=== PATIENT | male | born 1980 | race Caucasian/White ===

== ENCOUNTER 2020-04-21 09:35 | Outpatient (REF) | payer OTHER, SELFPAY | END 2020-04-21 09:36 | disposition home or self-care (01) | LOC: HO.WFDLDS 09:35 | PROVIDERS: Visit Provider Internal Medicine | DX: Z20.828 Contact with and (suspected) exposure to other viral communicable diseases (principal) | CPT/HCPCS: C9803; U0003 ==

== ENCOUNTER 2020-08-11 09:03 | Outpatient (REF) | payer OTHER, SELFPAY ==
[2020-08-11 10:28] LABS: Estimated Average Glucose 146 mg/dL; Hemoglobin A1c % 6.7 %
[2020-08-11 10:37] LABS: Creatinine Urine 82.38 mg/dL; Microalbum/Creatinine Ratio Ur 9.7 ug/mg cr
[2020-08-11 10:39] LABS: Anion Gap 17 (12-20); Blood Urea Nitrogen 19 mg/dL (9-16); Calcium 9.6 mg/dL (8.4-10.2); Carbon Dioxide 25 mmol/L (22-29); Chloride 102 mmol/L (96-108); Cholesterol 158 mg/dL; Estimated Glomerular Filt Rate > 60; Glucose Fasting 107 mg/dL (60-99); HDL Cholesterol 45 mg/dL; LDL Cholesterol Calculated 76 mg/dl; Potassium 5.4 mmol/L (3.3-5.1); Sodium 139 mmol/L (135-145); Triglycerides 187 mg/dL
== END 2020-08-11 09:04 | disposition home or self-care (01) ==
LOC: HO.10HDL 09:03
PROVIDERS: Visit Provider Nurse Practitioner Gerontology
DX: E11.65 Type 2 diabetes mellitus with hyperglycemia (principal)
CPT/HCPCS: 36415; 80048; 80061; 82043; 83036

== ENCOUNTER → 2020-08-12 08:41 | Outpatient (BNVA) | payer OTHER, SELFPAY | PROVIDERS: PCP Nurse Practitioner Family; Visit Provider Nurse Practitioner Gerontology | DX: E11.65 Type 2 diabetes mellitus with hyperglycemia (principal); I10 Essential (primary) hypertension; E78.5 Hyperlipidemia, unspecified; E87.5 Hyperkalemia; E66.01 Morbid (severe) obesity due to excess calories; Z68.36 Body mass index [BMI] 36.0-36.9, adult; E55.9 Vitamin D deficiency, unspecified | CPT/HCPCS: 82947 ==

== ENCOUNTER → 2021-02-10 08:34 | Outpatient (BNVA) | payer OTHER, SELFPAY | PROVIDERS: PCP Physician Assistant; Visit Provider Nurse Practitioner Gerontology | DX: E11.65 Type 2 diabetes mellitus with hyperglycemia (principal); E78.5 Hyperlipidemia, unspecified; E87.5 Hyperkalemia; E66.01 Morbid (severe) obesity due to excess calories; E55.9 Vitamin D deficiency, unspecified; I10 Essential (primary) hypertension; Z68.36 Body mass index [BMI] 36.0-36.9, adult | CPT/HCPCS: 82947; 83036 ==

== ENCOUNTER 2021-02-10 09:14 | Outpatient (REF) | payer OTHER, SELFPAY ==
[2021-02-10 11:24] LABS: Anion Gap 15 (12-20); Blood Urea Nitrogen 17 mg/dL (9-16); Calcium 10.3 mg/dL (8.4-10.2); Carbon Dioxide 25 mmol/L (22-29); Chloride 103 mmol/L (96-108); Estimated Glomerular Filt Rate > 60; Glucose Random 147 mg/dL (60-115); Potassium 4.9 mmol/L (3.3-5.1); Sodium 138 mmol/L (135-145)
== END 2021-02-10 09:15 | disposition home or self-care (01) ==
LOC: HO.10HDL 09:14
PROVIDERS: Visit Provider Nurse Practitioner Gerontology
DX: E11.65 Type 2 diabetes mellitus with hyperglycemia (principal)
CPT/HCPCS: 36415; 80048

== ENCOUNTER → 2021-08-19 08:10 | Outpatient (BNVA) | payer OTHER, SELFPAY | PROVIDERS: PCP Physician Assistant; Visit Provider Nurse Practitioner Gerontology | DX: E11.65 Type 2 diabetes mellitus with hyperglycemia (principal); E55.9 Vitamin D deficiency, unspecified; E66.01 Morbid (severe) obesity due to excess calories; Z68.36 Body mass index [BMI] 36.0-36.9, adult; I10 Essential (primary) hypertension; Z71.3 Dietary counseling and surveillance | CPT/HCPCS: 82947; 83036 ==

== ENCOUNTER 2022-12-31 09:24 | Outpatient (REF) | payer OTHER, SELFPAY ==
[2022-12-31 10:23] LABS: Hematocrit 48.7 % (42.0-52.0); Hemoglobin 16.3 g/dl (14.0-18.0); Mean Corpuscular HGB Conc 33.5 g/dl (31.0-36.0); Mean Corpuscular Volume 89.5 fL (80.0-98.0); Mean Platelet Volume 9.3 fL (9.4-12.4); Platelet Count 240 X10*3/uL (160-400); Red Blood Count 5.44 X10*6/uL (4.60-5.80); Red Cell Distribution Width 11.7 % (11.0-16.0); White Blood Count 7.8 X10*3/uL (4.8-10.8)
[2022-12-31 10:53] LABS: Creatinine Urine 72.04 mg/dL
[2022-12-31 11:00] LABS: Alanine Aminotransferase 24 U/L (0-40); Albumin Level 4.7 g/dL (3.5-5.0); Alkaline Phosphatase 70 U/L (39-117); Anion Gap 15 (12-20); Aspartate Amino Transferase 20 U/L (5-37); Bilirubin Total 0.6 mg/dL (0.0-1.0); Blood Urea Nitrogen 17 mg/dL (9-16); Calcium 10.2 mg/dL (8.4-10.2); Carbon Dioxide 27 mmol/L (22-29); Chloride 101 mmol/L (96-108); Cholesterol 128 mg/dL; Estimated Glomerular Filt Rate > 60; Glucose Fasting 110 mg/dL (60-99); HDL Cholesterol 38 mg/dL; LDL Cholesterol Calculated 58 mg/dl; Potassium 5.2 mmol/L (3.3-5.1); Sodium 138 mmol/L (135-145); Total Protein 7.8 g/dL (6.5-8.0); Triglycerides 164 mg/dL
[2022-12-31 11:15] LABS: TSH reflex Free T4 1.14 uIU/mL (0.32-4.0)
== END 2022-12-31 09:25 | disposition home or self-care (01) ==
LOC: HO.10HDL 09:24
PROVIDERS: Visit Provider Physician Assistant
DX: I10 Essential (primary) hypertension (principal); E11.65 Type 2 diabetes mellitus with hyperglycemia; E78.5 Hyperlipidemia, unspecified
CPT/HCPCS: 36415; 80053; 80061; 82043; 84443; 85027

== ENCOUNTER 2023-01-03 11:11 | Outpatient (AMB) | payer OTHER, SELFPAY ==
[2023-01-03 11:14] VITALS: BP 110/62; PULSE 90; O2SAT 98; BMI 34.4
--- NOTE | 2023-01-03 11:14 | MHC.PC.OV ---
Vital Signs 01/03/23 11:14 Height 5 ft 8 in Weight 226 lb 6 oz BMI 34.4 BP 110/62 Blood Pressure Location Lt brachial Position Sitting Pulse 90 Pulse Source Pulse Oximeter Pulse Oximetry (%) 98 Oxygen Delivery Method Room Air Intake Visit Reasons: f/u DMII Intake Note: Patient is here to follow up on DMII. Member Of Congress Required: No Accompanied by: Self / Same As Patient Allergies morphine [MORPHINE] Allergy (Unknown, Verified 01/03/23 11:15) ITCHING shellfish derived [SHELLFISH DERIVED] Allergy (Unknown, Verified 01/03/23 11:15) UNKNOWN pioglitazone Adverse Reaction (Intermediate, Verified 01/03/23 11:20) Arthralgias Morphine Allergy (Unknown, Uncoded 01/03/23 11:15) hives shellfish Allergy (Unknown, Uncoded 01/03/23 11:15) stomach upset Medication List - Last Reconciled 01/03/23 by Pj Seth PA-C cholecalciferol (vitamin D3) 50 mcg PO DAILY 30 days dulaglutide (Trulicity) 3 mg (0.5 mL) subcut QWEEK 28 days empagliflozin (Jardiance) 25 mg PO QAM lisinopril 10 mg PO DAILY metformin 1,000 mg PO BID rosuvastatin 40 mg PO DAILY 90 days Tobacco use date assessed: 08/30/22 Dental Screening Dental Screen Date: 01/03/23 Did you have a dental visit in the last 12 months?: No Did you have a dental problem in the last 6 months where you did not have access to dental care?: No Was dental information given to patient?: Patient has dentist HPI f/u DMII HPI Details Patient is a 42- year-old male here today for follow-up visit. ? Patient has a past medical history significant for type 2 diabetes, hyperlipidemia, hypertension and obesity. Type 2 diabetes:? Has lost his follow-up with endocrinology due to his provider leaving the practice. Now has PCP managing his diabetes. ? continues on Trulicity 3mg weekly, Jardiance and metformin.? Recently increased his Trulicity dose to 3 mg weekly ?Today's A1c-7.8 ..? Report blood sugars have been 180- 190s. PLAN: Will increase his Trulicity dose to 4.5 weekly, will consider transitioning to mounjaro if A1c not below 7.0 in 6 months. .. Hypertension:? Blood pressure has been acceptable at home.?Continues on 10 mg of lisinopril with good effect.? Otherwise denies any chest discomforts, palpitations, shortness of breath. .. Obesity:? Patient does understand his BMI is 30 and will work on being more physically active to reduce his weight. Laboratory Tests 08/19/21 08/30/22 12/31/22 08:20 12:37 09:30 RBC 5.44 Hgb 16.3 Potassium Creatinine Fasting Glucose Hgb A1c (Clinic) 7.4 H 7.3 H Cholesterol LDL Cholesterol, C alc TSH Urine Microalbumin 12/31/22 12/31/22 09:30 09:30 RBC Hgb Potassium 5.2 H Creatinine 0.82 Fasting Glucose 110 H Hgb A1c (Clinic) Cholesterol 128 LDL Cholesterol, C alc 58 TSH 1.14 Urine Microalbumin 13.0 [facility] Medical History (Updated 01/03/23 @ 11:21 by Pj Seth PA-C) COVID-19 Hyperlipidemia LDL goal <100 Hypovitaminosis D Type 2 diabetes mellitus with hyperglycemia, without long-term current use of insulin Surgical History No history of previous surgery Family History Maternal Uncle Diabetes Maternal Grandfather Diabetes Social History Household Members: Spouse Housing: House Alcohol intake: current Alcohol intake frequency: holidays/special occasions only Patient Tobacco Use Status: Never used Tobacco e-Cigarette/Vaping Use: Never Used Second Hand Smoke Exposure: Yes service: No Current occupational status: employed Current occupation: [employer] Cognitive needs: No Hearing needs: No Vision needs: Yes (glasses) Questionnaire Thrive Questionnaire Date Thrive assessed: 08/30/22 MONA-7 AMB Questionnaire MONA-7 Date MONA - 7 assessed: 08/30/22 Source: Developed by Drs. Mariano Knott, Denise Cobb, Matt Chen and colleagues, with an educational kendra from [employer] Review of Systems Const Denies headache(s) Eyes Denies loss of vision ENT Denies vertigo, Denies dizziness, Denies headache(s) and Denies sore throat Card Denies chest pain, Denies leg edema and Denies lightheadedness Resp Denies cough, Denies hemoptysis and Denies wheezing GI Denies abdominal pain, Denies melena, Denies constipation, Denies diarrhea and Denies vomiting Denies dysuria, Denies urinary frequency and Denies urinary urgency Musc Denies arthralgias, Denies joint swelling, Denies numbness and Denies tingling Neuro Denies Abnormal speech present, Denies behavioral changes, Denies vertigo, Denies dizziness, Denies headache(s), Denies loss of vision, Denies memory loss, Denies numbness and Denies tingling Psych Denies anxiety, Denies behavioral changes, Denies depression, Denies memory loss and Denies panic attacks Jesse/Lymph Denies easy bleeding and Denies easy bruising Aller/Immun Denies wheezing Physical exam (Primary Care) Vital Signs: Last Vital Signs Pulse 90 01/03/23 11:14 BP 110/62 01/03/23 11:14 Pulse Ox 98 01/03/23 11:14 Oxygen Delivery Method Room Air 01/03/23 11:14 BMI result Body Mass Index 34.4 BMI Assessment/Plan discussion: High Tobacco/Smoking Status: Tobacco use Status Tobacco use date assessed 08/30/22 01/03/23 11:18 Patient Tobacco Use Status Never used Tobacco 01/03/23 11:18 e-Cigarette/Vaping Use Never Used 01/03/23 11:18 Thrive Assessment: Date of Thrive Assessment Date Thrive assessed 08/30/22 01/03/23 11:18 Const Other: Obese General: healthy appearing, no acute distress, alert and awake Nutritional Appearance: well nourished Orientation/consciousness: oriented to person, oriented to place and oriented to time HENMT Ears: TM's normal bilaterally General nose exam: Normal nasal mucous membranes and turbinates present Eyes Conjunctivae: conjunctivae normal Sclerae: sclerae normal Pupils: Equal, round and reactive pupils present Neck Neck: Yes no lymphadenopathy and Yes no JVD Thyroid: Thyroid normal Carotids: no bruits Resp Effort & Inspection: normal respiratory effort and not tachypneic Auscultation: no crackles, no rales, no rhonchi and no wheezes Cardio Rate: regular rate Rhythm: regular rhythm Heart sounds: no murmurs and normal S1 and S2 GI Palpation (GI): Soft to palpation, nontender, no hepatomegaly and no splenomegaly Auscultation: normal bowel sounds Skin General skin exam: no rashes or lesions noted and dry skin Neuro General: oriented to person, oriented to place and oriented to time Cranial nerves: Yes Equal, round and reactive pupils present Speech: No Abnormal speech present Gait exam (Neuro): Normal gait present Motor exam (neuro): no tremor noted Extrem Right upper extremity: full ROM Left upper extremity: full ROM Right lower extremity: full ROM; no edema Left lower extremity: full ROM; no edema Psych Mental Status: mental status grossly normal Speech and movement: Normal speech and movement present Affect: normal affect Attitude: cooperative Thought process: Normal thought process present Results AMB Hemoglobin A1c AMB Hemoglobin A1c 7.8 % Last Edit by BENNY Beatty on 01/03/23 11:27 Results Reviewed Results Reviewed: Laboratory Last Values Hgb A1c (Clinic) 7.8 % (4.0-6.0) H 01/03/23 11:14 Assessment and Plan Assessment & Plan (1) Type 2 diabetes mellitus with hyperglycemia, without long-term current use of insulin: Code(s): E11.65 - Type 2 diabetes mellitus with hyperglycemia Plan: Patient's type 2 diabetes suboptimally controlled with his A1c today being at 7.8. Will increase his Trulicity dose to 4.5 mg weekly. Again advised on diabetic diet and being more physically active and patient does understand. Goal A1c is to be below 7.0. If in 6 months A1c not below 7.0 will consider transitioning to Mounjaro (2) HTN (hypertension): Code(s): I10 - Essential (primary) hypertension Qualifiers: Hypertension type: essential hypertension Qualified Code(s): I10 - Essential (primary) hypertension Plan: Patient's blood pressure acceptable today in office. Will continue his current dose of lisinopril with goal blood pressure to remain below 140/90 (3) Hyperlipidemia LDL goal <100: Code(s): E78.5 - Hyperlipidemia, unspecified Plan: Patient continues on statin therapy without side effect. Most recent lipid panel showing excellent control of his total cholesterol LDL. Goal LDL to remain below 100 (4) Obesity due to excess calories: Code(s): E66.09 - Other obesity due to excess calories Qualifiers: Body mass index: BMI 36.0-36.9 Obesity classification: adult class 2 (BMI 35 - 39.9) Serious obesity comorbidity presence: with serious comorbidity Qualified Code(s): E66.01 - Morbid (severe) obesity due to excess calories; Z68.36 - Body mass index [BMI] 36.0-36.9, adult Plan: Patient does understand his BMI remains above 30 will continue working on being more physically active and adapting to better eating habits to reduce his weight. Orders: Orders Comprehensive [place]. Panel Fast 6 Months E11.65 - Type 2 diabetes mellitus with hyperglycemia Lipid Panel 6 Months E78.5 - Hyperlipidemia, unspecified Vitamin D 25-OH Total 6 Months E55.9 - Vitamin D deficiency, unspecified Microalbumin, Random (w Creat) 6 Months I10 - Essential (primary) hypertension AMB Hemoglobin A1c Today E11.65 - Type 2 diabetes mellitus with hyperglycemia Referrals Ophthalmology Referral E11.65 - Type 2 diabetes mellitus with hyperglycemia Medications: New dulaglutide (Trulicity) 4.5 mg (0.5 mL) subcut QWEEK 4 weeks 2 mL 3RF E11.65 - Type 2 diabetes mellitus with hyperglycemia Refilled lisinopril 10 mg PO DAILY 90 tabs 1RF E11.65 - Type 2 diabetes mellitus with hyperglycemia Discontinued dulaglutide (Trulicity) Discontinued Reason: Doctor's Order 3 mg (0.5 mL) subcut QWEEK 28 days 2 mL 3RF E11.65 - Type 2 diabetes mellitus with hyperglycemia Coding Level of Care Code Est Pt Level 4 (09153) Diagnoses Type 2 diabetes mellitus with hyperglycemia, without long-term current use of insulin E11.65 HTN (hypertension) I10 Hypertension type: essential hypertension Hyperlipidemia LDL goal <100 E78.5 Obesity due to excess calories E66.01; Z68.36 Body mass index: BMI 36.0-36.9 Obesity classification: adult class 2 (BMI 35 - 39.9) Serious obesity comorbidity presence: with serious comorbidity
== END 2023-01-03 11:49 | disposition home or self-care (01) ==
PROVIDERS: PCP Physician Assistant; Visit Provider Physician Assistant
DX: E11.65 Type 2 diabetes mellitus with hyperglycemia (principal); I10 Essential (primary) hypertension; E66.01 Morbid (severe) obesity due to excess calories; Z68.34 Body mass index [BMI] 34.0-34.9, adult; E78.5 Hyperlipidemia, unspecified
CPT/HCPCS: 83036; 99214

== ENCOUNTER 2023-07-01 08:31 | Outpatient (REF) | payer OTHER, SELFPAY ==
[2023-07-01 11:58] LABS: Alanine Aminotransferase 46 U/L (0-40); Albumin Level 4.5 g/dL (3.5-5.0); Alkaline Phosphatase 72 U/L (39-117); Anion Gap 15 (12-20); Aspartate Amino Transferase 28 U/L (5-37); Bilirubin Total 0.5 mg/dL (0.0-1.0); Blood Urea Nitrogen 13 mg/dL (9-16); Calcium 10.1 mg/dL (8.4-10.2); Carbon Dioxide 27 mmol/L (22-29); Chloride 102 mmol/L (96-108); Cholesterol 149 mg/dL (<200); Estimated Glomerular Filt Rate > 60; Glucose Fasting 163 mg/dL (60-99); HDL Cholesterol 38 mg/dL (>40); LDL Cholesterol Calculated 73 mg/dL (<100); Potassium 5.3 mmol/L (3.3-5.1); Sodium 139 mmol/L (135-145); Total Protein 7.8 g/dL (6.5-8.0); Triglycerides 191 mg/dL (<150)
[2023-07-01 12:02] LABS: Vitamin D 25-OH Total 10.8 ng/mL (>30)
[2023-07-01 12:24] LABS: Creatinine Urine 65.65 mg/dL; Microalbum/Creatinine Ratio Ur 9.1 ug/mg cr (<30)
== END 2023-07-01 08:32 | disposition home or self-care (01) ==
LOC: HO.10HDL 08:31
PROVIDERS: Visit Provider Physician Assistant
DX: I10 Essential (primary) hypertension (principal); E11.65 Type 2 diabetes mellitus with hyperglycemia; E78.5 Hyperlipidemia, unspecified; E55.9 Vitamin D deficiency, unspecified
CPT/HCPCS: 36415; 80053; 80061; 82043; 82306; 82570

== ENCOUNTER 2023-07-05 08:21 | Outpatient (AMB) | payer OTHER, SELFPAY ==
--- NOTE | 2023-07-05 08:25 | MHC.PC.OV ---
Vital Signs 07/05/23 08:27 Height 5 ft 8 in Weight 230 lb BMI 35.0 BP 130/80 Blood Pressure Location Lt brachial Position Sitting Intake Visit Reasons: f/u DMII/ HTN Intake Note: Patient here for a follow up DM, HTN Pulverizer Feeder Required: No Accompanied by: Self / Same As Patient Allergies morphine [MORPHINE] Allergy (Unknown, Verified 07/05/23 08:32) ITCHING shellfish derived [SHELLFISH DERIVED] Allergy (Unknown, Verified 07/05/23 08:32) UNKNOWN pioglitazone Adverse Reaction (Intermediate, Verified 07/05/23 08:32) Arthralgias Morphine Allergy (Unknown, Uncoded 01/03/23 11:15) hives shellfish Allergy (Unknown, Uncoded 01/03/23 11:15) stomach upset Medication List - Last Reconciled 07/05/23 by Pj Seth PA-C cholecalciferol (vitamin D3) 50 mcg PO DAILY 30 days dulaglutide (Trulicity) 4.5 mg (0.5 mL) subcut QWEEK 4 weeks empagliflozin (Jardiance) 25 mg PO QAM lisinopril 10 mg PO DAILY metformin 1,000 mg PO BID rosuvastatin 40 mg PO DAILY 90 days Tobacco use date assessed: 07/05/23 Dental Screening Dental Screen Date: 07/05/23 Did you have a dental visit in the last 12 months?: No Did you have a dental problem in the last 6 months where you did not have access to dental care?: No Was dental information given to patient?: Patient has dentist HPI f/u DMII/ HTN HPI Details Patient is a 43- year-old male here today for follow-up visit. ? Patient has a past medical history significant for type 2 diabetes, hyperlipidemia, hypertension and obesity. Type 2 diabetes:? Has lost his follow-up with endocrinology .. Now has PCP managing his diabetes. ? continues on Trulicity 4.5mg weekly, Jardiance and metformin. Has been having trouble getting Trulicity through the pharmacy and reports only having to take Trulicity twice a month. We discussed perhaps starting a basal insulin though patient would like to hold off on this for now and implement a diabetic diet more closely? ?Today's A1c- 8.4? Report blood sugars have been 180- 190s. PLAN: Will continue diabetic medication as is. He will work hard on diabetic diet. .. Hypertension:? Blood pressure has been acceptable at home.?Continues on 10 mg of lisinopril with good effect.? Otherwise denies any chest discomforts, palpitations, shortness of breath. .. Obesity:? Patient does understand his BMI is 30 and will work on being more physically active to reduce his weight. Laboratory Tests 12/31/22 12/31/22 07/01/23 09:30 09:30 08:35 Potassium 5.3 H Chloride 102 Fasting Glucose 110 H 163 H AST ALT Cholesterol 25-OH Vitamin D To paco Urine Microalbumin 13.0 07/01/23 08:35 Potassium Chloride Fasting Glucose AST 28 ALT 46 H Cholesterol 149 25-OH Vitamin D To paco 10.8 L Urine Microalbumin 6.0 [facility] Medical History (Updated 07/05/23 @ 08:38 by Pj Seth PA-C) Hypovitaminosis D COVID-19 Type 2 diabetes mellitus with hyperglycemia, without long-term current use of insulin Hyperlipidemia LDL goal <100 Surgical History No history of previous surgery Family History Maternal Uncle Diabetes Maternal Grandfather Diabetes Social History Household Members: Spouse Housing: House Alcohol intake: current Alcohol intake frequency: holidays/special occasions only Patient Tobacco Use Status: Never used Tobacco e-Cigarette/Vaping Use: Never Used Second Hand Smoke Exposure: Yes service: No Current occupational status: employed Current occupation: [email or web address] Current occupational exposures/hazards: No Cognitive needs: No Hearing needs: No Vision needs: Yes (glasses) Questionnaire PHQ-9 Over the last 2 weeks, how often have you been bothered by any of the following problems? 1. Little interest or pleasure in doing things: not at all 2. Feeling down, depressed, or hopeless: not at all 3. Trouble falling or staying asleep, or sleeping too much: not at all 4. Feeling tired or having little energy: not at all 5. Poor appetite or overeating: not at all 6. Feeling bad about yourself - or that you are a failure or have let yourself or your family down: not at all 7. Trouble concentrating on things, such as reading the newspaper or watching television: not at all 8. Moving or speaking so slowly that other people could have noticed. Or the opposite - being so fidgety or restless that you have been moving around a lot more than usual: not at all 9. Thoughts that you would be better off or of hurting yourself in some way: not at all Total score: 0 Source: Developed by Drs. Mariano Knott, Denise Cobb, Matt Chen and colleagues, with an educational kendra from [employer]. Thrive Questionnaire Date Thrive assessed: 07/05/23 I am a: Patient What is your living situation today?: I have a steady place to live Within the past 12 months, did the food you bought not last and you didn't have the money to get more?: Never true Within the past 12 months, did you worry whether your food would run out before you got money to buy more?: Never true Do you have trouble paying for medicines?: No Do you have trouble getting transportation to medical appointments?: No Do you have trouble paying your heating and electricity bill?: No Do you have trouble taking care of your child, family member or friend?: No Do you have trouble with day-to-day activities such as bathing, preparing meals, shopping, managing finances, etc.?: No Are you currently unemployed and looking for a job?: No Are you interested in more education?: No Please select the resources that you would like help with: None Currently or been in a relationship where the following occur: no concerns reported THRIVE Score: 0 AUDIT C Alcohol Use Questionnaire (AUDIT-C) 1. How often do you have a drink containing alcohol?: Monthly or less 2. How many drinks containing alcohol do you have on a typical day when you are drinking?: 1 or 2 3. How often do you have six or more drinks on one occasion?: Never Total Score: 1 MONA-7 AMB Questionnaire MONA-7 Date MONA - 7 assessed: 07/05/23 Feeling nervous, anxious, or on edge: 0 = Not at all Not being able to stop or control worryin = Not at all Worrying too much about different things: 0 = Not at all Trouble relaxin = Not at all Being so restless that it is hard to sit still: 0 = Not at all Becoming easily annoyed or irritable: 0 = Not at all Feeling afraid as if something awful might happen: 0 = Not at all Total MONA-7 score (0-4 normal; 5-9 mild; 10-14 moderate; 15-21 severe): 0 Source: Developed by Drs. Mariano Knott, Denise Cobb, Matt Chen and colleagues, with an educational kendra from [employer]. Review of Systems Const Denies headache(s) Eyes Denies loss of vision ENT Denies vertigo, Denies dizziness, Denies headache(s) and Denies sore throat Card Denies chest pain, Denies leg edema and Denies lightheadedness Resp Denies cough, Denies hemoptysis and Denies wheezing GI Denies abdominal pain, Denies melena, Denies constipation, Denies diarrhea and Denies vomiting Denies dysuria, Denies urinary frequency and Denies urinary urgency Musc Denies arthralgias, Denies joint swelling, Denies numbness and Denies tingling Neuro Denies Abnormal speech present, Denies behavioral changes, Denies vertigo, Denies dizziness, Denies headache(s), Denies loss of vision, Denies memory loss, Denies numbness and Denies tingling Psych Denies anxiety, Denies behavioral changes, Denies depression, Denies memory loss and Denies panic attacks Jesse/Lymph Denies easy bleeding and Denies easy bruising Aller/Immun Denies wheezing Physical exam (Primary Care) BMI result Body Mass Index 35.0 BMI Assessment/Plan discussion: High Tobacco/Smoking Status: Tobacco use Status Tobacco use date assessed 08/30/22 01/03/23 11:18 Patient Tobacco Use Status Never used Tobacco 01/03/23 11:18 e-Cigarette/Vaping Use Never Used 01/03/23 11:18 Thrive Assessment: Date of Thrive Assessment Date Thrive assessed 08/30/22 01/03/23 11:18 Currently or been in a relationship where the following occur: no concerns reported Const Other: OBESE General: healthy appearing, no acute distress, alert and awake Nutritional Appearance: well nourished Orientation/consciousness: oriented to person, oriented to place and oriented to time [facility] Ears: TM's normal bilaterally General nose exam: Normal nasal mucous membranes and turbinates present Eyes Conjunctivae: conjunctivae normal Sclerae: sclerae normal Pupils: Equal, round and reactive pupils present Neck Neck: Yes no lymphadenopathy and Yes no JVD Thyroid: Thyroid normal Carotids: no bruits Resp Effort & Inspection: normal respiratory effort and not tachypneic Auscultation: no crackles, no rales, no rhonchi and no wheezes Cardio Rate: regular rate Rhythm: regular rhythm Heart sounds: no murmurs and normal S1 and S2 GI Palpation (GI): Soft to palpation, nontender, no hepatomegaly and no splenomegaly Auscultation: normal bowel sounds Skin General skin exam: no rashes or lesions noted and dry skin Neuro General: oriented to person, oriented to place and oriented to time Cranial nerves: Yes Equal, round and reactive pupils present Speech: No Abnormal speech present Gait exam (Neuro): Normal gait present Motor exam (neuro): no tremor noted Extrem Right upper extremity: full ROM Left upper extremity: full ROM Right lower extremity: full ROM; no edema Left lower extremity: full ROM; no edema Psych Mental Status: mental status grossly normal Speech and movement: Normal speech and movement present Affect: normal affect Attitude: cooperative Thought process: Normal thought process present Results AMB Hemoglobin A1c AMB Hemoglobin A1c 8.4 % Last Edit by MITRA Agudelo on 07/05/23 08:37 Assessment and Plan Assessment & Plan (1) Type 2 diabetes mellitus with hyperglycemia, without long-term current use of insulin: Code(s): E11.65 - Type 2 diabetes mellitus with hyperglycemia Plan: Patient's type 2 diabetes suboptimally controlled with his A1c elevated above 8. Unfortunately is having trouble consistently getting Trulicity through the. He does report being not compliant with a diabetic diet.. Again advised on diabetic diet and being more physically active and patient does understand. Goal A1c is to be below 7.0. (2) HTN (hypertension): Code(s): I10 - Essential (primary) hypertension Qualifiers: Hypertension type: essential hypertension Qualified Code(s): I10 - Essential (primary) hypertension Plan: Patient's blood pressure acceptable today in office. Will continue his current dose of lisinopril with goal blood pressure to remain below 140/90 (3) Hyperlipidemia LDL goal <100: Code(s): E78.5 - Hyperlipidemia, unspecified Plan: Patient continues on statin therapy without side effect. Most recent lipid panel showing excellent control of his total cholesterol LDL. Goal LDL to remain below 100 (4) Obesity due to excess calories: Code(s): E66.09 - Other obesity due to excess calories Qualifiers: Body mass index: BMI 36.0-36.9 Obesity classification: adult class 2 (BMI 35 - 39.9) Serious obesity comorbidity presence: with serious comorbidity Qualified Code(s): E66.01 - Morbid (severe) obesity due to excess calories; Z68.36 - Body mass index [BMI] 36.0-36.9, adult Plan: Patient does understand his BMI remains above 30 will continue working on being more physically active and adapting to better eating habits to reduce his weight. Orders: Orders AMB Hemoglobin A1c Today E11.65 - Type 2 diabetes mellitus with hyperglycemia Vitamin D 25-OH Total 6 Months E55.9 - Vitamin D deficiency, unspecified Lipid Panel 6 Months E78.5 - Hyperlipidemia, unspecified Basic Metabolic Panel Today E87.5 - Hyperkalemia Comprehensive [place]. Panel Fast 6 Months E11.65 - Type 2 diabetes mellitus with hyperglycemia Complete Blood Count no Diff 6 Months E11.65 - Type 2 diabetes mellitus with hyperglycemia Referrals Ophthalmology Referral E11.65 - Type 2 diabetes mellitus with hyperglycemia Medications: Changed From cholecalciferol (vitamin D3) 50 mcg PO DAILY 30 days 30 caps 0RF E55.9 - Vitamin D deficiency, unspecified To cholecalciferol (vitamin D3) 50 mcg PO DAILY 90 caps 2RF 90 days E55.9 - Vitamin D deficiency, unspecified Coding Level of Care Code Est Pt Level 4 (28603) Diagnoses Type 2 diabetes mellitus with hyperglycemia, without long-term current use of insulin E11.65 Essential hypertension I10 Hypertension type: essential hypertension Hyperlipidemia LDL goal <100 E78.5 Class 2 severe obesity due to excess calories with serious comorbidity and body mass index (BMI) of 36.0 to 36.9 in adult E66.01; Z68.36 Body mass index: BMI 36.0-36.9 Obesity classification: adult class 2 (BMI 35 - 39.9) Serious obesity comorbidity presence: with serious comorbidity
[2023-07-05 08:27] VITALS: BP 130/80; BMI 35.0
== END 2023-07-05 08:48 | disposition home or self-care (01) ==
PROVIDERS: PCP Physician Assistant; Visit Provider Physician Assistant
DX: E11.65 Type 2 diabetes mellitus with hyperglycemia (principal); I10 Essential (primary) hypertension; E78.5 Hyperlipidemia, unspecified; E66.01 Morbid (severe) obesity due to excess calories; Z68.36 Body mass index [BMI] 36.0-36.9, adult
CPT/HCPCS: 83036; 99214

== ENCOUNTER 2023-10-03 15:03 | Outpatient (AMB) | payer OTHER, SELFPAY ==
[2023-10-03 15:23] VITALS: BP 138/76; PULSE 87; O2SAT 95; BMI 36.2
--- NOTE | 2023-10-03 15:23 | A.OFFPC_ITS ---
Vital Signs 10/03/23 15:23 Height 5 ft 8 in Weight 238 lb BMI 36.2 BP 138/76 Blood Pressure Location Lt brachial Position Sitting Pulse 87 Pulse Source Pulse Oximeter Pulse Oximetry (%) 95 Oxygen Delivery Method Room Air Intake Visit Reasons: PE Intake Note: Patient is here today for a physical. 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 Accompanied by: Self / Same As Patient Allergies morphine [MORPHINE] Allergy (Unknown, Verified 10/03/23 15:47) ITCHING shellfish derived [SHELLFISH DERIVED] Allergy (Unknown, Verified 10/03/23 15:47) UNKNOWN pioglitazone Adverse Reaction (Intermediate, Verified 10/03/23 15:47) Arthralgias Morphine Allergy (Unknown, Uncoded 10/03/23 15:47) hives shellfish Allergy (Unknown, Uncoded 10/03/23 15:47) stomach upset Medication List - Last Reconciled 10/03/23 by Pj Seth PA-C cholecalciferol (vitamin D3) 50 mcg PO DAILY 90 days dulaglutide (Trulicity) 4.5 mg (0.5 mL) subcut QWEEK 4 weeks empagliflozin (Jardiance) 25 mg PO QAM lisinopril 10 mg PO DAILY metformin 1,000 mg PO BID rosuvastatin 40 mg PO DAILY 90 days Tobacco use date assessed: 07/05/23 Dental Screening Dental Screen Date: 07/05/23 HPI PE HPI Details Patient is a 43- year-old male here today for a routine annual physical. ? Patient has a past medical history significant for type 2 diabetes, hyperlipidemia, hypertension and obesity. Type 2 diabetes:? Has lost his follow-up with endocrinology .. Now has PCP managing his diabetes. ? He unfortunately has not been on Trulicity due to availability of pharmacy. He continues on Jardiance and metformin. He unfortunately has gained weight since last office visit. He does admit that sugars are higher than usual. Most recent A1c at 8.4 Report blood sugars have been 180- 190s. PLAN: Will start an alternative GLP 1 as he had trait glycemic control with Trulicity. .. Hypertension:? Blood pressure has been acceptable at home.?Continues on 10 mg of lisinopril with good effect.? Otherwise denies any chest discomforts, palpitations, shortness of breath. .. Obesity:? Unfortunately gained weight since last office visit, Patient does understand his BMI is 30 and will work on being more physically active to reduce his weight. Vaccine:? Up-to-date with tetanus, pneumonia vaccine, COVID vaccine, did not get flu vaccine [facility] Medical History Hypovitaminosis D COVID-19 Type 2 diabetes mellitus with hyperglycemia, without long-term current use of insulin Hyperlipidemia LDL goal <100 Surgical History No history of previous surgery Family History Maternal Uncle Diabetes Maternal Grandfather Diabetes Social History (Updated 10/03/23 @ 15:50 by Pj Seht PA-C) Household Members: Spouse Housing: House Alcohol intake: current Alcohol intake frequency: a few times a month Alcohol type: beer Patient Tobacco Use Status: Never used Tobacco e-Cigarette/Vaping Use: Never Used Second Hand Smoke Exposure: Yes service: No Current occupational status: employed Current occupation: [employer] Current occupational exposures/hazards: No Cognitive needs: No Hearing needs: No Vision needs: Yes (glasses) Questionnaire Thrive Questionnaire Date Thrive assessed: 07/05/23 MONA-7 AMB Questionnaire MONA-7 Date MONA - 7 assessed: 07/05/23 Source: Developed by Drs. Mariano Knott, Denise Cobb, Matt Chen and colleagues, with an educational kendra from [employer]. Review of Systems Const Denies headache(s) Eyes Denies loss of vision ENT Denies vertigo, Denies dizziness, Denies headache(s) and Denies sore throat Card Denies chest pain, Denies leg edema and Denies lightheadedness Resp Denies cough, Denies hemoptysis and Denies wheezing GI Denies abdominal pain, Denies melena, Denies constipation, Denies diarrhea and Denies vomiting Denies dysuria, Denies urinary frequency and Denies urinary urgency Musc Denies arthralgias, Denies joint swelling, Denies numbness and Denies tingling Neuro Denies Abnormal speech present, Denies behavioral changes, Denies vertigo, Denies dizziness, Denies headache(s), Denies loss of vision, Denies memory loss, Denies numbness and Denies tingling Psych Denies anxiety, Denies behavioral changes, Denies depression, Denies memory loss and Denies panic attacks Jesse/Lymph Denies easy bleeding and Denies easy bruising Aller/Immun Denies wheezing Physical exam (Primary Care) Vital Signs: Last Vital Signs Pulse 87 10/03/23 15:23 BP 138/76 10/03/23 15:23 Pulse Ox 95 10/03/23 15:23 Oxygen Delivery Method Room Air 10/03/23 15:23 BMI result Body Mass Index 36.2 Tobacco/Smoking Status: Tobacco use Status Tobacco use date assessed 07/05/23 10/03/23 15:24 Patient Tobacco Use Status Never used Tobacco 10/03/23 15:50 e-Cigarette/Vaping Use Never Used 10/03/23 15:50 Thrive Assessment: Date of Thrive Assessment Date Thrive assessed 07/05/23 10/03/23 15:24 Const General: healthy appearing, no acute distress, alert and awake Nutritional Appearance: well nourished Orientation/consciousness: oriented to person, oriented to place and oriented to time HENMT Ears: TM's normal bilaterally General nose exam: Normal nasal mucous membranes and turbinates present Eyes Conjunctivae: conjunctivae normal Sclerae: sclerae normal Pupils: Equal, round and reactive pupils present Neck Neck: Yes no lymphadenopathy and Yes no JVD Thyroid: Thyroid normal Carotids: no bruits Resp Effort & Inspection: normal respiratory effort and not tachypneic Auscultation: no crackles, no rales, no rhonchi and no wheezes Cardio Rate: regular rate Rhythm: regular rhythm Heart sounds: no murmurs and normal S1 and S2 GI Palpation (GI): Soft to palpation, nontender, no hepatomegaly and no splenomegaly Auscultation: normal bowel sounds Skin General skin exam: no rashes or lesions noted and dry skin Neuro General: oriented to person, oriented to place and oriented to time Cranial nerves: Yes Equal, round and reactive pupils present Speech: No Abnormal speech present Gait exam (Neuro): Normal gait present Motor exam (neuro): no tremor noted Extrem Right upper extremity: full ROM Left upper extremity: full ROM Right lower extremity: full ROM; no edema Left lower extremity: full ROM; no edema Psych Mental Status: mental status grossly normal Speech and movement: Normal speech and movement present Affect: normal affect Attitude: cooperative Thought process: Normal thought process present Assessment and Plan Assessment & Plan (1) Annual physical exam: Code(s): Z00.00 - Encounter for general adult medical examination without abnormal findings (2) Type 2 diabetes mellitus with hyperglycemia, without long-term current use of insulin: Code(s): E11.65 - Type 2 diabetes mellitus with hyperglycemia Plan: Patient's type 2 diabetes suboptimally controlled with his A1c elevated above 8. Unfortunately is having trouble consistently getting Trulicity through the pharmacy. Has done very well with GLP 1 with glycemic control in the past. Will transition him to Mounjauro has a may be better availability . He does report being not compliant with a diabetic diet.. Again advised on diabetic diet and being more physically active and patient does understand. Goal A1c is to be below 7.0. (3) HTN (hypertension): Code(s): I10 - Essential (primary) hypertension Qualifiers: Hypertension type: essential hypertension Qualified Code(s): I10 - Essential (primary) hypertension Plan: Patient's blood pressure acceptable today in office. Will continue his current dose of lisinopril with goal blood pressure to remain below 140/90 (4) Hyperlipidemia LDL goal <100: Code(s): E78.5 - Hyperlipidemia, unspecified Plan: Patient continues on statin therapy without side effect. Most recent lipid panel showing excellent control of his total cholesterol LDL. Goal LDL to remain below 100 Orders: Orders Hemoglobin A1c 10/03/23 E11.65 - Type 2 diabetes mellitus with hyperglycemia Medications: New tirzepatide (Mounjaro) 5 mg (0.5 mL) subcut QWEEK 2 mL 3RF 4 weeks E11.65 - Type 2 diabetes mellitus with hyperglycemia Discontinued dulaglutide (Trulicity) Discontinued Reason: Doctor's Order 4.5 mg (0.5 mL) subcut QWEEK 4 weeks 2 mL 3RF E11.65 - Type 2 diabetes mellitus with hyperglycemia Patient Instructions: Goal: Blood pressure to be below 140/90, A1c to be below 7.0 Barrier: Adherence to physical activity and healthy eating habits. Coding Level of Care Code Est Pt Prev Care 40-64y(20956) Diagnoses Annual physical exam Z00.00 Type 2 diabetes mellitus with hyperglycemia, without long-term current use of insulin E11.65 Essential hypertension I10 Hypertension type: essential hypertension Hyperlipidemia LDL goal <100 E78.5
== END 2023-10-03 16:02 | disposition home or self-care (01) ==
PROVIDERS: PCP Physician Assistant; Visit Provider Physician Assistant
DX: Z00.00 Encounter for general adult medical examination without abnormal findings (principal); E11.65 Type 2 diabetes mellitus with hyperglycemia; I10 Essential (primary) hypertension; E78.5 Hyperlipidemia, unspecified
CPT/HCPCS: 99396

== ENCOUNTER 2023-12-28 08:40 | Outpatient (REF) | payer OTHER, SELFPAY ==
[2023-12-28 11:03] LABS: Hematocrit 47.5 % (42.0-52.0); Hemoglobin 16.6 g/dl (14.0-18.0); Mean Corpuscular HGB Conc 34.9 g/dl (31.0-36.0); Mean Corpuscular Hemoglobin 30.7 pg (27.0-33.0); Mean Platelet Volume 9.2 fL (9.4-12.4); Platelet Count 218 X10*3/uL (160-400); Red Cell Distribution Width 11.9 % (11.0-16.0); White Blood Count 7.8 X10*3/uL (4.8-10.8)
[2023-12-28 11:24] LABS: Alanine Aminotransferase 29 U/L (0-40); Albumin Level 4.5 g/dL (3.5-5.0); Alkaline Phosphatase 67 U/L (39-117); Anion Gap 12 (12-20); Aspartate Amino Transferase 20 U/L (5-37); Bilirubin Total 0.6 mg/dL (0.0-1.0); Blood Urea Nitrogen 13 mg/dL (9-16); Calcium 9.5 mg/dL (8.4-10.2); Carbon Dioxide 28 mmol/L (22-29); Chloride 101 mmol/L (96-108); Cholesterol 167 mg/dL (<200); Estimated Glomerular Filt Rate > 60; Glucose Fasting 154 mg/dL (60-99); HDL Cholesterol 40 mg/dL (>40); LDL Cholesterol Calculated 81 mg/dL (<100); Potassium 4.6 mmol/L (3.3-5.1); Sodium 136 mmol/L (135-145); Total Protein 7.4 g/dL (6.5-8.0); Triglycerides 233 mg/dL (<150)
[2023-12-28 11:41] LABS: Vitamin D 25-OH Total 56.9 ng/mL (>30)
== END 2023-12-28 08:41 | disposition home or self-care (01) ==
LOC: HO.10HDL 08:40
PROVIDERS: Visit Provider Physician Assistant
DX: E55.9 Vitamin D deficiency, unspecified (principal); E78.5 Hyperlipidemia, unspecified; E11.65 Type 2 diabetes mellitus with hyperglycemia
CPT/HCPCS: 36415; 80053; 80061; 82306; 85027

== ENCOUNTER 2024-01-03 08:15 | Outpatient (AMB) | payer OTHER, SELFPAY ==
[2024-01-03 08:21] VITALS: BP 128/80; PULSE 79; O2SAT 97; BMI 35.4
--- NOTE | 2024-01-03 08:21 | A.OFFPC_ITS ---
Vital Signs 01/03/24 08:21 Height 5 ft 8 in Weight 233 lb BMI 35.4 BP 128/80 Blood Pressure Location Lt brachial Position Sitting Pulse 79 Pulse Source Pulse Oximeter Pulse Oximetry (%) 97 Oxygen Delivery Method Room Air Intake Visit Reasons: 6mth f/u 4 H Youth Development Specialist Required: No Allergies morphine [MORPHINE] Allergy (Unknown, Verified 01/03/24 08:44) ITCHING shellfish derived [SHELLFISH DERIVED] Allergy (Unknown, Verified 01/03/24 08:44) UNKNOWN pioglitazone Adverse Reaction (Intermediate, Verified 01/03/24 08:44) Arthralgias Morphine Allergy (Unknown, Uncoded 01/03/24 08:44) hives shellfish Allergy (Unknown, Uncoded 01/03/24 08:44) stomach upset Medication List - Last Reconciled 01/03/24 by Pj Seth PA-C cholecalciferol (vitamin D3) 50 mcg PO DAILY 90 days empagliflozin (Jardiance) 25 mg PO QAM lisinopril 10 mg PO DAILY metformin 1,000 mg PO BID rosuvastatin 40 mg PO DAILY 90 days tirzepatide (Mounjaro) 5 mg (0.5 mL) subcut QWEEK 4 weeks Tobacco use date assessed: 07/05/23 Dental Screening Dental Screen Date: 07/05/23 HPI 6mth f/u HPI Details Patient is a 43- year-old male here today for a follow-up visit ? Patient has a past medical history significant for type 2 diabetes, hyperlipidemia, hypertension and obesity. Type 2 diabetes:? Now has PCP managing his diabetes. He has been transitioned to an alternative GLP 1. He continues on Jardiance and metformin. Most recent A1c at 8.1 from 8.4 .. Hypertension:? Blood pressure has been acceptable at home.?Continues on 10 mg of lisinopril with good effect.? Otherwise denies any chest discomforts, palpitations, shortness of breath. .. Obesity:? Has lost weight since last office visit. Patient does understand his BMI is 30 and will work on being more physically active to reduce his weight. [facility] Medical History Hypovitaminosis D COVID-19 Type 2 diabetes mellitus with hyperglycemia, without long-term current use of insulin Hyperlipidemia LDL goal <100 Surgical History No history of previous surgery Family History Maternal Uncle Diabetes Maternal Grandfather Diabetes Social History Household Members: Spouse Housing: House Alcohol intake: current Alcohol intake frequency: a few times a month Alcohol type: beer Patient Tobacco Use Status: Never used Tobacco e-Cigarette/Vaping Use: Never Used Second Hand Smoke Exposure: Yes service: No Current occupational status: employed Current occupation: [employer] Current occupational exposures/hazards: No Cognitive needs: No Hearing needs: No Vision needs: Yes (glasses) Questionnaire Thrive Questionnaire Date Thrive assessed: 07/05/23 AUDIT C Alcohol Use Questionnaire (AUDIT-C) 1. How often do you have a drink containing alcohol?: Monthly or less 2. How many drinks containing alcohol do you have on a typical day when you are drinking?: 1 or 2 3. How often do you have six or more drinks on one occasion?: Never Total Score: 1 MONA-7 AMB Questionnaire MONA-7 Date MONA - 7 assessed: 07/05/23 Source: Developed by Drs. Mariano Knott, Denise Cobb, Matt Chen and colleagues, with an educational kendra from [employer]. Review of Systems Const Denies headache(s) Eyes Denies loss of vision ENT Denies vertigo, Denies dizziness, Denies headache(s) and Denies sore throat Card Denies chest pain, Denies leg edema and Denies lightheadedness Resp Denies cough, Denies hemoptysis and Denies wheezing GI Denies abdominal pain, Denies melena, Denies constipation, Denies diarrhea and Denies vomiting Denies dysuria, Denies urinary frequency and Denies urinary urgency Musc Denies arthralgias, Denies joint swelling, Denies numbness and Denies tingling Neuro Denies Abnormal speech present, Denies behavioral changes, Denies vertigo, Denies dizziness, Denies headache(s), Denies loss of vision, Denies memory loss, Denies numbness and Denies tingling Psych Denies anxiety, Denies behavioral changes, Denies depression, Denies memory loss and Denies panic attacks Jesse/Lymph Denies easy bleeding and Denies easy bruising Aller/Immun Denies wheezing Physical exam (Primary Care) Vital Signs: Last Vital Signs Pulse 79 01/03/24 08:21 BP 128/80 01/03/24 08:21 Pulse Ox 97 01/03/24 08:21 Oxygen Delivery Method Room Air 01/03/24 08:21 BMI result Body Mass Index 35.4 Tobacco/Smoking Status: Tobacco use Status Tobacco use date assessed 07/05/23 01/03/24 08:22 Patient Tobacco Use Status Never used Tobacco 01/03/24 08:22 e-Cigarette/Vaping Use Never Used 01/03/24 08:22 Thrive Assessment: Date of Thrive Assessment Date Thrive assessed 07/05/23 01/03/24 08:22 Const General: healthy appearing, no acute distress, alert and awake Nutritional Appearance: well nourished Orientation/consciousness: oriented to person, oriented to place and oriented to time HENMT Ears: TM's normal bilaterally General nose exam: Normal nasal mucous membranes and turbinates present Eyes Conjunctivae: conjunctivae normal Sclerae: sclerae normal Pupils: Equal, round and reactive pupils present Neck Neck: Yes no lymphadenopathy and Yes no JVD Thyroid: Thyroid normal Carotids: no bruits Resp Effort & Inspection: normal respiratory effort and not tachypneic Auscultation: no crackles, no rales, no rhonchi and no wheezes Cardio Rate: regular rate Rhythm: regular rhythm Heart sounds: no murmurs and normal S1 and S2 GI Palpation (GI): Soft to palpation, nontender, no hepatomegaly and no splenomegaly Auscultation: normal bowel sounds Skin General skin exam: no rashes or lesions noted and dry skin Neuro General: oriented to person, oriented to place and oriented to time Cranial nerves: Yes Equal, round and reactive pupils present Speech: No Abnormal speech present Gait exam (Neuro): Normal gait present Motor exam (neuro): no tremor noted Extrem Right upper extremity: full ROM Left upper extremity: full ROM Right lower extremity: full ROM; no edema Left lower extremity: full ROM; no edema Psych Mental Status: mental status grossly normal Speech and movement: Normal speech and movement present Affect: normal affect Attitude: cooperative Thought process: Normal thought process present Results AMB Hemoglobin A1c AMB Hemoglobin A1c 8.1 % Last Edit by MITRA Perez on 01/03/24 08:37 Results Reviewed Results Reviewed: Laboratory Last Values Hgb A1c (Clinic) 8.1 % (4.0-6.0) H 01/03/24 08:23 Assessment and Plan Assessment & Plan (1) Type 2 diabetes mellitus with hyperglycemia, without long-term current use of insulin: Code(s): E11.65 - Type 2 diabetes mellitus with hyperglycemia Plan: Patient's type 2 diabetes suboptimally controlled with his A1c elevated above 8. Has been a bit better since more consistent with availability GLP 1 . Will increase his dose of GLP 1 to 7.5 mg for better glycemic control. . He does report being not compliant with a diabetic diet.. Again advised on diabetic diet and being more physically active and patient does understand. Goal A1c is to be below 7.0. (2) HTN (hypertension): Code(s): I10 - Essential (primary) hypertension Qualifiers: Hypertension type: essential hypertension Qualified Code(s): I10 - Essential (primary) hypertension Plan: Patient's blood pressure acceptable today in office. Will continue his current dose of lisinopril with goal blood pressure to remain below 140/90 (3) Hyperlipidemia LDL goal <100: Code(s): E78.5 - Hyperlipidemia, unspecified Plan: Patient continues on statin therapy without side effect. Most recent lipid panel showing excellent control of his total cholesterol LDL. Goal LDL to remain below 100 Orders: Orders AMB Hemoglobin A1c Today E11.65 - Type 2 diabetes mellitus with hyperglycemia Referrals Ophthalmology Referral E11.65 - Type 2 diabetes mellitus with hyperglycemia Medications: New tirzepatide (Mounjaro) 7.5 mg (0.5 mL) subcut QWEEK 4 weeks 2 mL 3RF E11.65 - Type 2 diabetes mellitus with hyperglycemia, E66.01 - Morbid (severe) obesity due to excess calories, E78.5 - Hyperlipidemia, unspecified, Z68.36 - Body mass index [BMI] 36.0-36.9, adult Refilled empagliflozin (Jardiance) 25 mg PO QAM 30 tabs 5RF E11.65 - Type 2 diabetes mellitus with hyperglycemia Discontinued tirzepatide (Mounjaro) Discontinued Reason: Doctor's Order 5 mg (0.5 mL) subcut QWEEK 4 weeks 2 mL 3RF E11.65 - Type 2 diabetes mellitus with hyperglycemia Patient Instructions: Goal: A1c to be below 7.0 Barrier: Adherence to physical activity and healthy eating habits Coding Level of Care Code Est Pt Level 4 (49394) Diagnoses Type 2 diabetes mellitus with hyperglycemia, without long-term current use of insulin E11.65 Essential hypertension I10 Hypertension type: essential hypertension Hyperlipidemia LDL goal <100 E78.5
== END 2024-01-03 09:04 | disposition home or self-care (01) ==
PROVIDERS: PCP Physician Assistant; Visit Provider Physician Assistant
DX: E11.65 Type 2 diabetes mellitus with hyperglycemia (principal); I10 Essential (primary) hypertension; E78.5 Hyperlipidemia, unspecified
CPT/HCPCS: 83036; 99214

== ENCOUNTER 2024-04-30 08:50 | Outpatient (REF) | payer OTHER, SELFPAY ==
[2024-04-30 11:54] LABS: Anion Gap 13 (12-20); Blood Urea Nitrogen 16 mg/dL (9-16); Calcium 9.6 mg/dL (8.4-10.2); Carbon Dioxide 28 mmol/L (22-29); Chloride 102 mmol/L (96-108); Estimated Glomerular Filt Rate > 60; Glucose Random 173 mg/dL (60-115); Potassium 4.9 mmol/L (3.3-5.1); Sodium 138 mmol/L (135-145)
[2024-04-30 11:56] LABS: Estimated Average Glucose 157 mg/dL; Hemoglobin A1C 222.6548 umol/L; Hemoglobin A1c % 7.1 % (<6.0); Total Hemoglobin (HGBA1C) 4124.0291 umol/L
== END 2024-04-30 08:51 | disposition home or self-care (01) ==
LOC: HO.10HDL 08:50
PROVIDERS: Visit Provider Physician Assistant
DX: E11.65 Type 2 diabetes mellitus with hyperglycemia (principal); E87.5 Hyperkalemia
CPT/HCPCS: 36415; 80048; 83036

== ENCOUNTER 2024-05-02 12:59 | Outpatient (AMB) | payer OTHER, SELFPAY ==
--- NOTE | 2024-05-02 13:01 | A.OFFPC_ITS ---
Vital Signs 05/02/24 13:02 Height 5 ft 8 in Weight 229 lb BMI 34.8 BP 110/84 Blood Pressure Location Lt brachial Position Sitting Pulse 89 Pulse Source Pulse Oximeter Pulse Oximetry (%) 98 Oxygen Delivery Method Room Air Intake Visit Reasons: f/u DMII- ( need A1c) Lab Manager Required: No Accompanied by: Self / Same As Patient Allergies morphine [MORPHINE] Allergy (Unknown, Verified 05/02/24 13:20) ITCHING shellfish derived [SHELLFISH DERIVED] Allergy (Unknown, Verified 05/02/24 13:20) UNKNOWN pioglitazone Adverse Reaction (Intermediate, Verified 05/02/24 13:20) Arthralgias Morphine Allergy (Unknown, Uncoded 05/02/24 13:20) hives shellfish Allergy (Unknown, Uncoded 05/02/24 13:20) stomach upset Medication List - Last Reconciled 05/02/24 by Pj Seth PA-C cholecalciferol (vitamin D3) 50 mcg PO DAILY 90 days empagliflozin (Jardiance) 25 mg PO QAM lisinopril 10 mg PO DAILY metformin 1,000 mg PO BID rosuvastatin 40 mg PO DAILY 90 days tirzepatide (Mounjaro) 7.5 mg (0.5 mL) subcut QWEEK 4 weeks Tobacco use date assessed: 05/02/24 Dental Screening Dental Screen Date: 05/02/24 Did you have a dental visit in the last 12 months?: No Did you have a dental problem in the last 6 months where you did not have access to dental care?: No Was dental information given to patient?: No HPI f/u DMII- ( need A1c) HPI Details Patient is a 44- year-old male here today for a follow-up visit ? Patient has a past medical history significant for type 2 diabetes, hyperlipidemia, hypertension and obesity. Type 2 diabetes:? Patient continues on Mounjaro 7.5 mg weekly. He does report a few weeks he admits that due to pharmacy availability. A1c is much improved from 8.1-7.1. Of note patient has lost a few lb since last office visit He continues on Jardiance and metformin as well.. .. Hypertension:? Blood pressure has been acceptable at home.?Continues on 10 mg of lisinopril with good effect.? Otherwise denies any chest discomforts, palpitations, shortness of breath. .. Obesity:? Has lost weight since last office visit. Patient does understand his BMI is 30 and will work on being more physically active to reduce his weight. [facility] Medical History Hypovitaminosis D COVID-19 Type 2 diabetes mellitus with hyperglycemia, without long-term current use of insulin Hyperlipidemia LDL goal <100 Surgical History No history of previous surgery Family History Maternal Uncle Diabetes Maternal Grandfather Diabetes Social History Household Members: Spouse Housing: House Alcohol intake: current Alcohol intake frequency: a few times a month Alcohol type: beer Patient Tobacco Use Status: Never used Tobacco e-Cigarette/Vaping Use: Never Used Second Hand Smoke Exposure: Yes service: No Current occupational status: employed Current occupation: [email or web address] Current occupational exposures/hazards: No Cognitive needs: No Hearing needs: No Vision needs: Yes (glasses) Questionnaire PHQ-9 Over the last 2 weeks, how often have you been bothered by any of the following problems? 1. Little interest or pleasure in doing things: not at all 2. Feeling down, depressed, or hopeless: not at all 3. Trouble falling or staying asleep, or sleeping too much: not at all 4. Feeling tired or having little energy: not at all 5. Poor appetite or overeating: not at all 6. Feeling bad about yourself - or that you are a failure or have let yourself or your family down: not at all 7. Trouble concentrating on things, such as reading the newspaper or watching television: not at all 8. Moving or speaking so slowly that other people could have noticed. Or the opposite - being so fidgety or restless that you have been moving around a lot more than usual: not at all 9. Thoughts that you would be better off or of hurting yourself in some way: not at all Total score: 0 Depression Screening Interpretation: Negative Depression Screening Done: Yes 55927 - PHQ-9 Billing: Yes Source: Developed by Drs. Mariano Knott, Denise Cobb, Matt Chen and colleagues, with an educational kendra from [employer]. Thrive Questionnaire Date Thrive assessed: 05/02/24 I am a: Patient What is your living situation today?: I have a steady place to live Within the past 12 months, did the food you bought not last and you didn't have the money to get more?: Never true Within the past 12 months, did you worry whether your food would run out before you got money to buy more?: Never true Do you have trouble paying for medicines?: No Do you have trouble getting transportation to medical appointments?: No Do you have trouble paying your heating and electricity bill?: No Do you have trouble taking care of your child, family member or friend?: No Do you have trouble with day-to-day activities such as bathing, preparing meals, shopping, managing finances, etc.?: No Are you currently unemployed and looking for a job?: No Are you interested in more education?: No Please select the resources that you would like help with: None Currently or been in a relationship where the following occur: No concerns reported THRIVE Score: 0 AUDIT C Alcohol Use Questionnaire (AUDIT-C) 1. How often do you have a drink containing alcohol?: Monthly or less 2. How many drinks containing alcohol do you have on a typical day when you are drinking?: 1 or 2 3. How often do you have six or more drinks on one occasion?: Never Total Score: 1 MONA-7 AMB Questionnaire MONA-7 Date MONA - 7 assessed: 05/02/24 Feeling nervous, anxious, or on edge: 0 = Not at all Not being able to stop or control worryin = Not at all Worrying too much about different things: 0 = Not at all Trouble relaxin = Not at all Being so restless that it is hard to sit still: 0 = Not at all Becoming easily annoyed or irritable: 0 = Not at all Feeling afraid as if something awful might happen: 0 = Not at all Total MONA-7 score (0-4 normal; 5-9 mild; 10-14 moderate; 15-21 severe): 0 Source: Developed by Denise Coronado, Matt Chen and colleagues, with an educational kendra from [employer]. Review of Systems Const Denies headache(s) Eyes Denies loss of vision ENT Denies vertigo, Denies dizziness, Denies headache(s) and Denies sore throat Card Denies chest pain, Denies leg edema and Denies lightheadedness Resp Denies cough, Denies hemoptysis and Denies wheezing GI Denies abdominal pain, Denies melena, Denies constipation, Denies diarrhea and Denies vomiting Denies dysuria, Denies urinary frequency and Denies urinary urgency Musc Denies arthralgias, Denies joint swelling, Denies numbness and Denies tingling Neuro Denies Abnormal speech present, Denies behavioral changes, Denies vertigo, Denies dizziness, Denies headache(s), Denies loss of vision, Denies memory loss, Denies numbness and Denies tingling Psych Denies anxiety, Denies behavioral changes, Denies depression, Denies memory loss and Denies panic attacks Jesse/Lymph Denies easy bleeding and Denies easy bruising Aller/Immun Denies wheezing Physical exam (Primary Care) Vital Signs: Last Vital Signs Pulse 89 05/02/24 13:02 BP 110/84 05/02/24 13:02 Pulse Ox 98 05/02/24 13:02 Oxygen Delivery Method Room Air 05/02/24 13:02 BMI result Body Mass Index 34.8 Tobacco/Smoking Status: Tobacco use Status Tobacco use date assessed 05/02/24 05/02/24 13:05 Patient Tobacco Use Status Never used Tobacco 05/02/24 13:05 e-Cigarette/Vaping Use Never Used 05/02/24 13:05 PHQ-9: PHQ-9 Score PHQ-9: Total score 0 05/02/24 13:05 Depression Screening Interpretation: Negative Thrive Assessment: Date of Thrive Assessment Date Thrive assessed 05/02/24 05/02/24 13:05 Currently or been in a relationship where the following occur: No concerns rep orted Const General: healthy appearing, no acute distress, alert and awake Nutritional Appearance: well nourished Orientation/consciousness: oriented to person, oriented to place and oriented to time HENMT Ears: TM's normal bilaterally General nose exam: Normal nasal mucous membranes and turbinates present Eyes Conjunctivae: conjunctivae normal Sclerae: sclerae normal Pupils: Equal, round and reactive pupils present Neck Neck: Yes no lymphadenopathy and Yes no JVD Thyroid: Thyroid normal Carotids: no bruits Resp Effort & Inspection: normal respiratory effort and not tachypneic Auscultation: no crackles, no rales, no rhonchi and no wheezes Cardio Rate: regular rate Rhythm: regular rhythm Heart sounds: no murmurs and normal S1 and S2 GI Palpation (GI): Soft to palpation, nontender, no hepatomegaly and no spl enomegaly Auscultation: normal bowel sounds Skin General skin exam: no rashes or lesions noted and dry skin Neuro General: oriented to person, oriented to place and oriented to time Cranial nerves: Yes Equal, round and reactive pupils present Speech: No Abnormal speech present Gait exam (Neuro): Normal gait present Motor exam (neuro): no tremor noted Extrem Right upper extremity: full ROM Left upper extremity: full ROM Right lower extremity: full ROM; no edema Left lower extremity: full ROM; no edema Psych Mental Status: mental status grossly normal Speech and movement: Normal speech and movement present Affect: normal affect Attitude: cooperative Thought process: Normal thought process present Coding Level of Care Code Est Pt Level 4 (74154) Diagnoses Type 2 diabetes mellitus with hyperglycemia, without long-term current use of insulin E11.65 Hyperlipidemia LDL goal <100 E78.5 Essential hypertension I10 Hypertension type: essential hypertension Additional Codes PHQ-9 - 98955 - PHQ-9 Billing: Yes ([id number]) Assessment & Plan Assessment & Plan (1) Type 2 diabetes mellitus with hyperglycemia, without long-term current use o f insulin: Code(s): E11.65 - Type 2 diabetes mellitus with hyperglycemia Category: Medical Plan: Patient's type 2 diabetes has been better controlled with most consistent use of GLP 1. Most recent A1c is 7.1. He would like to continue his current diabetic med regime at this time. Goal A1c is to be below 7.0 (2) Hyperlipidemia LDL goal <100: Code(s): E78.5 - Hyperlipidemia, unspecified Category: Medical Plan: Patient continues rosuvastatin 40 mg. Most recent lipid panel showing good control of his total cholesterol and LDL. Goal LDL is to be below 100 (3) HTN (hypertension): Code(s): I10 - Essential (primary) hypertension Category: Medical Qualifiers: Hypertension type: essential hypertension Qualified Code(s): I10 - Essential (primary) hypertension Plan: Patient's blood pressure acceptable today in office. Will continue him on his current dose of lisinopril 10 mg. Goal blood pressures to remain below 140/90 Orders: Orders Comprehensive [place]. Panel Fast Today E11.65 - Type 2 diabetes mellitus with hyperglycemia Complete Blood Count no Diff Today I10 - Essential (primary) hypertension Microalbumin, Random (w Creat) Today E11.65 - Type 2 diabetes mellitus with hyperglycemia Lipid Panel Today E78.5 - Hyperlipidemia, unspecified Referrals Ophthalmology Referral E11.65 - Type 2 diabetes mellitus with hyperglycemia
[2024-05-02 13:02] VITALS: BP 110/84; PULSE 89; O2SAT 98; BMI 34.8
== END 2024-05-02 13:28 | disposition home or self-care (01) ==
PROVIDERS: PCP Physician Assistant; Visit Provider Physician Assistant
DX: E11.65 Type 2 diabetes mellitus with hyperglycemia (principal); E78.5 Hyperlipidemia, unspecified; I10 Essential (primary) hypertension

== ENCOUNTER → 2024-05-02 12:59 | Outpatient (BNVA) | payer OTHER, SELFPAY | PROVIDERS: PCP Physician Assistant; Visit Provider Physician Assistant | DX: E11.65 Type 2 diabetes mellitus with hyperglycemia (principal); E78.5 Hyperlipidemia, unspecified; I10 Essential (primary) hypertension; Z79.899 Other long term (current) drug therapy | CPT/HCPCS: 96127 ==

== ENCOUNTER 2024-09-03 08:32 | Outpatient (AMB) | payer OTHER, SELFPAY ==
[2024-09-03 08:38] VITALS: BP 136/82; PULSE 87; O2SAT 97; BMI 34.7
--- NOTE | 2024-09-03 08:38 | MHC.PC.OV ---
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 Accompanied by: Self / Same As Patient Allergies morphine [MORPHINE] Allergy (Unknown, Verified 09/03/24 08:49) ITCHING shellfish derived [SHELLFISH DERIVED] Allergy (Unknown, Verified 09/03/24 08:49) UNKNOWN pioglitazone Adverse Reaction (Intermediate, Verified 09/03/24 08:49) Arthralgias Morphine Allergy (Unknown, Uncoded 09/03/24 08:49) hives shellfish Allergy (Unknown, Uncoded 09/03/24 08:49) stomach upset Medication List - Last Reconciled 09/03/24 by Pj Seth PA-C cholecalciferol (vitamin D3) 50 mcg PO DAILY 90 days empagliflozin (Jardiance) 25 mg PO QAM lisinopril 10 mg PO DAILY metformin 1,000 mg PO BID rosuvastatin 40 mg PO DAILY 90 days tirzepatide (Mounjaro) 7.5 mg (0.5 mL) subcut QWEEK 4 weeks Tobacco use date assessed: 09/03/24 Dental Screening Dental Screen Date: 09/03/24 HPI 4 month f/u HPI Details Patient is a 44- year-old male here today for a follow-up visit ? Patient has a past medical history significant for type 2 diabetes, hyperlipidemia, hypertension and obesity. Type 2 diabetes:? Patient continues on Mounjaro 7.5 mg weekly. Today's A1c is 7.3 from 7.1. He does admit to some dietary indiscretion Of note patient has lost a few lb since last office visit He continues on Jardiance and metformin as well.. . Hyperlipidemia: Most recent labs showing excellent control of his total cholesterol and LDL. Will continue current dose of statin therapy with goal LDL to be below 100. .. Hypertension:? Blood pressure has been acceptable at home.?Continues on 10 mg of lisinopril with good effect.? Otherwise denies any chest discomforts, palpitations, shortness of breath. .. Class 1 Obesity:? Patient does understand his BMI is 30 and will work on being more physically active to reduce his weight. [facility] Medical History Hypovitaminosis D COVID-19 Type 2 diabetes mellitus with hyperglycemia, without long-term current use of insulin Hyperlipidemia LDL goal <100 Surgical History No history of previous surgery Family History Maternal Uncle Diabetes Maternal Grandfather Diabetes Social History Household Members: Spouse Housing: House Alcohol intake: current Alcohol intake frequency: a few times a month Alcohol type: beer Patient Tobacco Use Status: Never used Tobacco e-Cigarette/Vaping Use: Never Used Second Hand Smoke Exposure: Yes service: No Current occupational status: employed Current occupation: [employer] Current occupational exposures/hazards: No Cognitive needs: No Hearing needs: No Vision needs: Yes (glasses) Questionnaire PHQ-9 Over the last 2 weeks, how often have you been bothered by any of the following problems? 1. Little interest or pleasure in doing things: not at all 2. Feeling down, depressed, or hopeless: not at all 3. Trouble falling or staying asleep, or sleeping too much: not at all 4. Feeling tired or having little energy: not at all 5. Poor appetite or overeating: not at all 6. Feeling bad about yourself - or that you are a failure or have let yourself or your family down: not at all 7. Trouble concentrating on things, such as reading the newspaper or watching television: not at all 8. Moving or speaking so slowly that other people could have noticed. Or the opposite - being so fidgety or restless that you have been moving around a lot more than usual: not at all 9. Thoughts that you would be better off or of hurting yourself in some way: not at all Total score: 0 Depression Screening Interpretation: Negative Depression Screening Done: Yes 21495 - PHQ-9 Billing: Yes Source: Developed by Drs. Mariano Knott, Denise Cobb, Matt Chen and colleagues, with an educational kendra from [employer]. Thrive Questionnaire Date Thrive assessed: 09/03/24 I am a: Patient What is your living situation today?: I have a steady place to live Within the past 12 months, did the food you bought not last and you didn't have the money to get more?: Never true Within the past 12 months, did you worry whether your food would run out before you got money to buy more?: Never true Do you have trouble paying for medicines?: No Do you have trouble getting transportation to medical appointments?: No Do you have trouble paying your heating and electricity bill?: No Do you have trouble taking care of your child, family member or friend?: No Do you have trouble with day-to-day activities such as bathing, preparing meals, shopping, managing finances, etc.?: No Are you currently unemployed and looking for a job?: No Are you interested in more education?: No Please select the resources that you would like help with: None Currently or been in a relationship where the following occur: No concerns reported THRIVE Score: 0 AUDIT C Alcohol Use Questionnaire (AUDIT-C) 1. How often do you have a drink containing alcohol?: Monthly or less 2. How many drinks containing alcohol do you have on a typical day when you are drinking?: 3 or 4 3. How often do you have six or more drinks on one occasion?: Never Total Score: 2 MONA-7 AMB Questionnaire MONA-7 Date MONA - 7 assessed: 09/03/24 Feeling nervous, anxious, or on edge: 0 = Not at all Not being able to stop or control worryin = Not at all Worrying too much about different things: 0 = Not at all Trouble relaxin = Not at all Being so restless that it is hard to sit still: 0 = Not at all Becoming easily annoyed or irritable: 0 = Not at all Feeling afraid as if something awful might happen: 0 = Not at all Total MONA-7 score (0-4 normal; 5-9 mild; 10-14 moderate; 15-21 severe): 0 Source: Developed by Drs. Mariano Knott, Denise Cobb, Matt Chen and colleagues, with an educational kendra from [employer]. MONA-7 Assessment Billing MONA-7 Assessment Tool: MONA-7 Assessment 44308 Review of Systems Const Denies headache(s) Eyes Denies loss of vision ENT Denies vertigo, Denies dizziness, Denies headache(s) and Denies sore throat Card Denies chest pain, Denies leg edema and Denies lightheadedness Resp Denies cough, Denies hemoptysis and Denies wheezing GI Denies abdominal pain, Denies melena, Denies constipation, Denies diarrhea and Denies vomiting Denies dysuria, Denies urinary frequency and Denies urinary urgency Musc Denies arthralgias, Denies joint swelling, Denies numbness and Denies tingling Neuro Denies Abnormal speech present, Denies behavioral changes, Denies vertigo, Denies dizziness, Denies headache(s), Denies loss of vision, Denies memory loss, Denies numbness and Denies tingling Psych Denies anxiety, Denies behavioral changes, Denies depression, Denies memory loss and Denies panic attacks Jesse/Lymph Denies easy bleeding and Denies easy bruising Aller/Immun Denies wheezing Physical exam (Primary Care) Vital Signs: Last Vital Signs Pulse 87 09/03/24 08:38 BP 136/82 09/03/24 08:38 Pulse Ox 97 09/03/24 08:38 Oxygen Delivery Method Room Air 09/03/24 08:38 BMI result Body Mass Index 34.7 BMI Assessment/Plan discussion: High BMI High, discussed plan: lifestyle, weight reduction, dietary and physical activity Tobacco/Smoking Status: Tobacco use Status Tobacco use date assessed 09/03/24 09/03/24 08:45 Patient Tobacco Use Status Never used Tobacco 09/03/24 08:45 e-Cigarette/Vaping Use Never Used 09/03/24 08:45 PHQ-9: PHQ-9 Score PHQ-9: Total score 0 09/03/24 08:47 Depression Screening Interpretation: Negative Thrive Assessment: Date of Thrive Assessment Date Thrive assessed 09/03/24 09/03/24 08:45 Currently or been in a relationship where the following occur: No concerns reported Const General: healthy appearing, no acute distress, alert and awake Nutritional Appearance: well nourished Orientation/consciousness: oriented to person, oriented to place and oriented to time HENMT Ears: TM's normal bilaterally General nose exam: Normal nasal mucous membranes and turbinates present Eyes Conjunctivae: conjunctivae normal Sclerae: sclerae normal Pupils: Equal, round and reactive pupils present Neck Neck: Yes no lymphadenopathy and Yes no JVD Thyroid: Thyroid normal Carotids: no bruits Resp Effort & Inspection: normal respiratory effort and not tachypneic Auscultation: no crackles, no rales, no rhonchi and no wheezes Cardio Rate: regular rate Rhythm: regular rhythm Heart sounds: no murmurs and normal S1 and S2 GI Palpation (GI): Soft to palpation, nontender, no hepatomegaly and no splenomegaly Auscultation: normal bowel sounds Skin General skin exam: no rashes or lesions noted and dry skin Neuro General: oriented to person, oriented to place and oriented to time Cranial nerves: Yes Equal, round and reactive pupils present Speech: No Abnormal speech present Gait exam (Neuro): Normal gait present Motor exam (neuro): no tremor noted Extrem Right upper extremity: full ROM Left upper extremity: full ROM Right lower extremity: full ROM; no edema Left lower extremity: full ROM; no edema Psych Mental Status: mental status grossly normal Speech and movement: Normal speech and movement present Affect: normal affect Attitude: cooperative Thought process: Normal thought process present Results AMB Hemoglobin A1c AMB Hemoglobin A1c 7.3 % Last Edit by MITRA Odom on 09/03/24 08:58 Coding Level of Care Code Est Pt Level 4 (32416) Diagnoses Type 2 diabetes mellitus with hyperglycemia, without long-term current use of insulin E11.65 Hyperlipidemia LDL goal <100 E78.5 Essential hypertension I10 Hypertension type: essential hypertension Class 1 obesity E66.811 Additional Codes PHQ-9 - 58582 - PHQ-9 Billing: Yes ([id number]) MONA-7 Assessment Billing - MONA-7 Assessment Tool: MONA-7 Assessment 61259 ([id number]) Assessment & Plan Assessment & Plan (1) Type 2 diabetes mellitus with hyperglycemia, without long-term current use of insulin: Code(s): E11.65 - Type 2 diabetes mellitus with hyperglycemia Category: Medical Plan: Patient's type 2 diabetes has been better controlled with most consistent use of GLP 1. Today's A1c is 7.3. He does admit to some dietary indiscretion and lack of physical activity. He would like to continue his current diabetic med regime at this time. Goal A1c is to be below 7.0 (2) Hyperlipidemia LDL goal <100: Code(s): E78.5 - Hyperlipidemia, unspecified Category: Medical Plan: Patient continues rosuvastatin 40 mg. Most recent lipid panel showing good control of his total cholesterol and LDL. Goal LDL is to be below 100 (3) HTN (hypertension): Code(s): I10 - Essential (primary) hypertension Category: Medical Qualifiers: Hypertension type: essential hypertension Qualified Code(s): I10 - Essential (primary) hypertension Plan: Patient's blood pressure acceptable today in office. Will continue him on his current dose of lisinopril 10 mg. Goal blood pressures to remain below 140/90 (4) Class 1 obesity: Code(s): E66.811 - Obesity, class 1 Category: Medical Plan: Patient does understand his BMI is over 30 will work on being more physically active and adapting to better eating habits to reduce his weight Orders: Orders AMB Hemoglobin A1c Today Z13.9 - Encounter for screening, unspecified Patient Instructions: Goal: A1c to be below 7.0, blood pressure to be below 140/90, LDL to remain below 100 Barriers: Adherence to physical activity and healthy eating habits
== END 2024-09-03 09:05 | disposition home or self-care (01) ==
LOC: HO.HMCH 08:33
PROVIDERS: PCP Physician Assistant; Visit Provider Physician Assistant
DX: E11.65 Type 2 diabetes mellitus with hyperglycemia (principal); E78.5 Hyperlipidemia, unspecified; E66.811 Obesity, class 1; Z68.34 Body mass index [BMI] 34.0-34.9, adult; I10 Essential (primary) hypertension

== ENCOUNTER → 2024-09-03 08:32 | Outpatient (BNVA) | payer OTHER, SELFPAY | PROVIDERS: PCP Physician Assistant; Visit Provider Physician Assistant | DX: E11.65 Type 2 diabetes mellitus with hyperglycemia (principal); E78.5 Hyperlipidemia, unspecified; I10 Essential (primary) hypertension; E66.811 Obesity, class 1; Z68.34 Body mass index [BMI] 34.0-34.9, adult; Z79.899 Other long term (current) drug therapy | CPT/HCPCS: 83036; 96127 ==

== ENCOUNTER 2025-01-18 09:03 | Outpatient (REF) | payer OTHER, SELFPAY ==
--- OUTSIDE RECORDS SUMMARY | 2025-01-18 09:53 | XMS_ITS | Continuity of Care Document ---
Author Organization [facility] Address [address] [address] Problems Condition ICD9 code ICD10 code SNOMED code Start Date End Date S tatus Encounter for screening for other metabolic disorders Z13.228 Results No Results Allergies, adverse reactions, alerts No known allergies and adverse reactions Medications No administered medications reported Vital Signs No vital signs reported Social History No smoking Hx information available
--- OUTSIDE RECORDS SUMMARY | 2025-01-18 09:53 | XMS_ITS | Clinical Summary ---
Author Organization [facility] Address [address] [place] [address] Care Team Providers Care Health Service Coordinator Name Role Phone Unavailable Primary Care Provider Unavailabl e Allergies Active Allergy Reactions Criticality Noted Date Comments Morphine Hives 09/18/2020 Shellfish Nausea And Vomiting 08/28/2020 Immunizations Name Administration Dates Next Due Covid-19 (Pfizer) Dilution Required 09/18/2020,0 08/28/2020 Social History Tobacco Use Types Packs/Day Years Used Date Smoking Tobacco: Never Assessed Sex and Gender Information Value Date Recorded Sex Assigned at Male 09/03/2020 9:17 AM EDT Gender Identity Not on file Sexual Orientation Not on file Job Start Date Occupation Industry Not on file Not on file Not on file Plan of Treatment Health Maintenance Due Date Last Done Comments Hepatitis B Vaccines (1 of 3 - 3-dose series) 1982 Hepatitis C Screening 1982 Depression Screening 1994 Preventative Health Evaluation 2000 DTap / Tdap / Td (1 - Tdap) 2001 COVID-19 Vaccine (3 - 2024-2 6 season) 2025 09/18/2020, 08/28/2020 Influenza Vaccine (#1) 2025 Pneumococcal Vaccine Aged Out No long er eligible based on patient's age to complete this topic RSV Ped < 20 months Aged Out No longe r eligible based on patient's age to complete this topic [address] [id number]
--- OUTSIDE RECORDS SUMMARY | 2025-01-18 09:53 | XMS_ITS | Continuity of Care Document ---
Author Organization [facility] Address [address] [address] Problems Condition ICD9 code ICD10 code SNOMED code Start Date End Date S tatus Encounter for screening for other metabolic disorders Z13.228 Results No Results Allergies, adverse reactions, alerts No known allergies and adverse reactions Medications No administered medications reported Vital Signs No vital signs reported Social History No smoking Hx information available
[2025-01-18 10:58] LABS: Hematocrit 47.9 % (42.0-52.0); Hemoglobin 16.5 g/dl (14.0-18.0); Mean Corpuscular HGB Conc 34.4 g/dl (31.0-36.0); Mean Corpuscular Hemoglobin 30.1 pg (27.0-33.0); Mean Corpuscular Volume 87.4 fL (80.0-98.0); NRBC Abs Auto 0.000 X10*3/uL (0.0-0.012); NRBC Pct Auto 0.0 /100WBC (0.0-0.2); Platelet Count 239 X10*3/uL (160-400); Red Blood Count 5.48 X10*6/uL (4.60-5.80); White Blood Count 6.3 X10*3/uL (4.8-10.8)
[2025-01-18 11:24] LABS: Microalbum/Creatinine Ratio Ur 20.4 ug/mg cr (<30)
[2025-01-18 11:45] LABS: Alanine Aminotransferase 66 U/L (0-40); Albumin Level 4.8 g/dL (3.5-5.0); Alkaline Phosphatase 70 U/L (39-117); Anion Gap 16 (12-20); Aspartate Amino Transferase 40 U/L (5-37); Blood Urea Nitrogen 17 mg/dL (9-16); Calcium 9.4 mg/dL (8.4-10.2); Carbon Dioxide 26 mmol/L (22-29); Chloride 101 mmol/L (96-108); Cholesterol 173 mg/dL (<200); Estimated Glomerular Filt Rate > 60; HDL Cholesterol 44 mg/dL (>40); Potassium 4.9 mmol/L (3.3-5.1); Sodium 138 mmol/L (135-145); Total Protein 7.5 g/dL (6.5-8.0); Triglycerides 205 mg/dL (<150)
== END 2025-01-18 09:04 | disposition home or self-care (01) ==
LOC: HO.10HDL 09:03
PROVIDERS: Visit Provider Physician Assistant
DX: E11.65 Type 2 diabetes mellitus with hyperglycemia (principal); I10 Essential (primary) hypertension; E78.5 Hyperlipidemia, unspecified
CPT/HCPCS: 36415; 80053; 80061; 82043; 82570; 85027

== ENCOUNTER 2025-01-21 08:30 | Outpatient (AMB) | payer OTHER, SELFPAY ==
--- NOTE | 2025-01-21 08:43 | MHC.PC.OV ---
Vital Signs 01/21/25 08:44 Height 5 ft 8 in Weight 232 lb 2 oz BMI 35.3 BP 132/68 Blood Pressure Location Lt brachial Position Sitting Pulse 86 Pulse Source Pulse Oximeter Temp 97.3 F Temp Source Temporal Artery Scan Pulse Oximetry (%) 97 Oxygen Delivery Method Room Air Intake Visit Reasons: f/u DMII / HLD Intake Note: Patient is here to follow up on DM, HLD. Strategic Buyer Required: No Display And Banner Designer: Not Required per policy Accompanied by: Self / Same As Patient Allergies morphine (MORPHINE) Allergy (Unknown, Verified 01/21/25 08:51) ITCHING shellfish derived (SHELLFISH DERIVED) Allergy (Unknown, Verified 01/21/25 08:51) UNKNOWN pioglitazone Adverse Reaction (Intermediate, Verified 01/21/25 08:51) Arthralgias Morphine Allergy (Unknown, Uncoded 01/21/25 08:51) hives shellfish Allergy (Unknown, Uncoded 01/21/25 08:51) stomach upset Medication List - Last Reconciled 01/21/25 by jP Seth PA-C cholecalciferol (vitamin D3) 50 mcg PO DAILY 90 days empagliflozin (Jardiance) 25 mg PO QAM lisinopril 10 mg PO DAILY metformin 1,000 mg PO BID rosuvastatin 40 mg PO DAILY 90 days tirzepatide (Mounjaro) 7.5 mg (0.5 mL) subcut QWEEK 4 weeks Tobacco use date assessed: 01/21/25 Dental Screening Dental Screen Date: 09/03/24 HPI f/u DMII / HLD HPI Details Patient is a 44- year-old male here today for a follow-up visit ? Patient has a past medical history significant for type 2 diabetes, hyperlipidemia, hypertension and obesity. Type 2 diabetes:? Patient continues on Mounjaro 7.5 mg weekly. Today's A1c is 7.7 from 7.3. Patient recently on a cruise on vacation and admits to dietary indiscretion He continues on Jardiance and metformin as well.. .. Elevated liver enzymes: The patient reports a recent weight gain of 4 pounds, with a current weight of 232 pounds, up from 228 pounds at the last visit. This weight change coincides with a recent cruise vacation, which may have contributed to elevated liver enzymes observed in recent lab results. . Hyperlipidemia: Most recent labs showing excellent control of his total cholesterol and LDL. Will continue current dose of statin therapy with goal LDL to be below 100. .. Hypertension:? Blood pressure has been acceptable at home.?Continues on 10 mg of lisinopril with good effect.? Otherwise denies any chest discomforts, palpitations, shortness of breath. .. Class 1 Obesity:? Has gained a few lb since last office visit. Patient does understand his BMI is 30 and will work on being more physically active to reduce his weight. [facility] Medical History Hypovitaminosis D COVID-19 Type 2 diabetes mellitus with hyperglycemia, without long-term current use of insulin Hyperlipidemia LDL goal <100 Surgical History No history of previous surgery Family History Maternal Uncle Diabetes Maternal Grandfather Diabetes Social History Household Members: Spouse Housing: House Alcohol intake: current Alcohol intake frequency: a few times a month Alcohol type: beer Patient Tobacco Use Status: Never used Tobacco e-Cigarette/Vaping Use: Never Used Second Hand Smoke Exposure: No service: No Current occupational status: employed Current occupation: [employer] Current occupational exposures/hazards: No Cognitive needs: No Hearing needs: No Vision needs: Yes (glasses) Questionnaire PHQ-9 Over the last 2 weeks, how often have you been bothered by any of the following problems? 1. Little interest or pleasure in doing things: not at all 2. Feeling down, depressed, or hopeless: not at all 3. Trouble falling or staying asleep, or sleeping too much: not at all 4. Feeling tired or having little energy: not at all 5. Poor appetite or overeating: not at all 6. Feeling bad about yourself - or that you are a failure or have let yourself or your family down: not at all 7. Trouble concentrating on things, such as reading the newspaper or watching television: not at all 8. Moving or speaking so slowly that other people could have noticed. Or the opposite - being so fidgety or restless that you have been moving around a lot more than usual: not at all 9. Thoughts that you would be better off or of hurting yourself in some way: not at all Total score: 0 Depression Screening Interpretation: Negative Depression Screening Done: Yes 78689 - PHQ-9 Billing: Yes Source: Developed by Drs. Mariano Knott, Denise Cobb, Matt Chen and colleagues, with an educational kendra from [employer]. Thrive Questionnaire Date Thrive assessed: 01/19/25 I am a: Patient What is your living situation today?: I have a steady place to live Within the past 12 months, did the food you bought not last and you didn't have the money to get more?: Never true Within the past 12 months, did you worry whether your food would run out before you got money to buy more?: Never true Do you have trouble paying for medicines?: No Do you have trouble getting transportation to medical appointments?: No Do you have trouble paying your heating and electricity bill?: No Do you have trouble taking care of your child, family member or friend?: No Do you have trouble with day-to-day activities such as bathing, preparing meals, shopping, managing finances, etc.?: No Are you currently unemployed and looking for a job?: No Are you interested in more education?: No Please select the resources that you would like help with: None Currently or been in a relationship where the following occur: No concerns reported THRIVE Score: 0 AUDIT C Alcohol Use Questionnaire (AUDIT-C) 1. How often do you have a drink containing alcohol?: 2-3 times a week Total Score: 3 MONA-7 AMB Questionnaire MONA-7 Date MONA - 7 assessed: 09/03/24 Feeling nervous, anxious, or on edge: 0 = Not at all Not being able to stop or control worryin = Not at all Worrying too much about different things: 0 = Not at all Trouble relaxin = Not at all Being so restless that it is hard to sit still: 0 = Not at all Becoming easily annoyed or irritable: 0 = Not at all Feeling afraid as if something awful might happen: 0 = Not at all Total MONA-7 score (0-4 normal; 5-9 mild; 10-14 moderate; 15-21 severe): 0 Source: Developed by Drs. Mariano Knott, Denise Cobb, Matt Chen and colleagues, with an educational kendra from [employer]. Review of Systems Const Denies headache(s) Eyes Denies loss of vision ENT Denies vertigo, Denies dizziness, Denies headache(s) and Denies sore throat Card Denies chest pain, Denies leg edema and Denies lightheadedness Resp Denies cough, Denies hemoptysis and Denies wheezing GI Denies abdominal pain, Denies melena, Denies constipation, Denies diarrhea and Denies vomiting Denies dysuria, Denies urinary frequency and Denies urinary urgency Musc Denies arthralgias, Denies joint swelling, Denies numbness and Denies tingling Neuro Denies Abnormal speech present, Denies behavioral changes, Denies vertigo, Denies dizziness, Denies headache(s), Denies loss of vision, Denies memory loss, Denies numbness and Denies tingling Psych Denies anxiety, Denies behavioral changes, Denies depression, Denies memory loss and Denies panic attacks Jesse/Lymph Denies easy bleeding and Denies easy bruising Aller/Immun Denies wheezing Physical exam (Primary Care) Vital Signs: Last Vital Signs Temp 97.3 F 01/21/25 08:44 Pulse 86 01/21/25 08:44 BP 132/68 01/21/25 08:44 Pulse Ox 97 01/21/25 08:44 Oxygen Delivery Method Room Air 01/21/25 08:44 BMI result Body Mass Index 35.3 BMI Assessment/Plan discussion: High BMI High, discussed plan: lifestyle, weight reduction, dietary and physical activity Tobacco/Smoking Status: Tobacco use Status Tobacco use date assessed 01/21/25 01/21/25 08:50 Patient Tobacco Use Status Never used Tobacco 01/21/25 08:50 e-Cigarette/Vaping Use Never Used 01/21/25 08:50 PHQ-9: PHQ-9 Score PHQ-9: Total score 0 01/21/25 08:50 Depression Screening Interpretation: Negative Thrive Assessment: Date of Thrive Assessment Date Thrive assessed 01/19/25 01/21/25 08:50 Currently or been in a relationship where the following occur: No concerns reported Const General: healthy appearing, no acute distress, alert and awake Nutritional Appearance: well nourished Orientation/consciousness: oriented to person, oriented to place and oriented to time HENMT Ears: TM's normal bilaterally General nose exam: Normal nasal mucous membranes and turbinates present Eyes Conjunctivae: conjunctivae normal Sclerae: sclerae normal Pupils: Equal, round and reactive pupils present Neck Neck: Yes no lymphadenopathy and Yes no JVD Thyroid: Thyroid normal Carotids: no bruits Resp Effort & Inspection: normal respiratory effort and not tachypneic Auscultation: no crackles, no rales, no rhonchi and no wheezes Cardio Rate: regular rate Rhythm: regular rhythm Heart sounds: no murmurs and normal S1 and S2 GI Palpation (GI): Soft to palpation, nontender, no hepatomegaly and no splenomegaly Auscultation: normal bowel sounds Skin General skin exam: no rashes or lesions noted and dry skin Neuro General: oriented to person, oriented to place and oriented to time Cranial nerves: Yes Equal, round and reactive pupils present Speech: No Abnormal speech present Gait exam (Neuro): Normal gait present Motor exam (neuro): no tremor noted Extrem Right upper extremity: full ROM Left upper extremity: full ROM Right lower extremity: full ROM; no edema Left lower extremity: full ROM; no edema Psych Mental Status: mental status grossly normal Speech and movement: Normal speech and movement present Affect: normal affect Attitude: cooperative Thought process: Normal thought process present Results AMB Hemoglobin A1c AMB Hemoglobin A1c 7.7 % Last Edit by MITRA Goldberg on 01/21/25 08:55 Coding Level of Care Code Est Pt Level 4 (83235) Diagnoses Type 2 diabetes mellitus with hyperglycemia, without long-term current use of insulin E11.65 Hyperlipidemia LDL goal <100 E78.5 Essential hypertension I10 Hypertension type: essential hypertension Class 1 obesity E66.811 Elevated liver enzymes R74.8 Additional Codes PHQ-9 - 80356 - PHQ-9 Billing: Yes ([id number]) Assessment & Plan Assessment & Plan (1) Type 2 diabetes mellitus with hyperglycemia, without long-term current use of insulin: Code(s): E11.65 - Type 2 diabetes mellitus with hyperglycemia Category: Medical Plan: Patient's type 2 diabetes suboptimally controlled with A1c today is 7.7 from 7.3. Will increase his GLP 1 dose for better glycemic control He does admit to some dietary indiscretion and lack of physical activity. Goal A1c is to be below 7.0 (2) Hyperlipidemia LDL goal <100: Code(s): E78.5 - Hyperlipidemia, unspecified Category: Medical Plan: Patient continues rosuvastatin 40 mg. Most recent lipid panel showing good control of his total cholesterol and LDL. Goal LDL is to be below 100 (3) HTN (hypertension): Code(s): I10 - Essential (primary) hypertension Category: Medical Qualifiers: Hypertension type: essential hypertension Qualified Code(s): I10 - Essential (primary) hypertension Plan: Patient's blood pressure acceptable today in office. Will continue him on his current dose of lisinopril 10 mg. Goal blood pressures to remain below 140/90 (4) Class 1 obesity: Code(s): E66.811 - Obesity, class 1 Category: Medical Plan: Have noted small amount of weight gain since last office visit. Patient recently on vacation on a cruise. Patient does understand his BMI is over 30 will work on being more physically active and adapting to better eating habits to reduce his weight (5) Elevated liver enzymes: Code(s): R74.8 - Abnormal levels of other serum enzymes Category: Medical Plan: The elevated liver enzymes are suspected to be related to recent alcohol consumption during the patient's cruise vacation. No immediate intervention is planned, but monitoring will continue, and lifestyle modifications are advised. Orders: Orders AMB Hemoglobin A1c Today E11.65 - Type 2 diabetes mellitus with hyperglycemia Medications: New tirzepatide (Mounjaro) 10 mg (0.5 mL) subcut QWEEK 2 mL 6RF 4 weeks E11.65 - Type 2 diabetes mellitus with hyperglycemia On Hold tirzepatide (Mounjaro) Hold Comment: Doctor's Order 7.5 mg (0.5 mL) subcut QWEEK 2 mL 3RF 4 weeks E11.65 - Type 2 diabetes mellitus with hyperglycemia, E66.01 - Morbid (severe) obesity due to excess calories, E78.5 - Hyperlipidemia, unspecified, Z68.36 - Body mass index [BMI] 36.0-36.9, adult
[2025-01-21 08:44] VITALS: BP 132/68; PULSE 86; TEMP 36.3; O2SAT 97; BMI 35.3
--- OUTSIDE RECORDS SUMMARY | 2025-01-21 09:31 | XMS_ITS | Clinical Summary ---
Author Organization [facility] Address [address] [place] [address] Care Team Providers Care Billiard Table Repairer Name Role Phone Unavailable Primary Care Provider [...] age to complete this topic [address] [phone]
== END 2025-01-21 09:02 | disposition home or self-care (01) ==
LOC: HO.HMCH 08:31
PROVIDERS: PCP Physician Assistant; Visit Provider Physician Assistant
DX: E11.65 Type 2 diabetes mellitus with hyperglycemia (principal); E78.5 Hyperlipidemia, unspecified; E66.811 Obesity, class 1; Z68.35 Body mass index [BMI] 35.0-35.9, adult; I10 Essential (primary) hypertension; R74.8 Abnormal levels of other serum enzymes

== ENCOUNTER → 2025-01-21 08:30 | Outpatient (BNVA) | payer OTHER, SELFPAY | PROVIDERS: PCP Physician Assistant; Visit Provider Physician Assistant | DX: E11.65 Type 2 diabetes mellitus with hyperglycemia (principal); E78.5 Hyperlipidemia, unspecified; I10 Essential (primary) hypertension; R74.8 Abnormal levels of other serum enzymes; E66.811 Obesity, class 1; E66.01 Morbid (severe) obesity due to excess calories; Z68.36 Body mass index [BMI] 36.0-36.9, adult | CPT/HCPCS: 83036; 96127 ==